=== PATIENT | female | born 1960 | race Caucasian/White ===

== ENCOUNTER 2019-04-28 04:27 | Observation (INO) ==
[2019-04-28] MEDS ORDERED: KETOROLAC 30 MG/ML VIAL IV STA (04:43)
[2019-04-28 04:58] LABS: Basophils # (auto) 0.03 K/uL (0-0.2); Basophils % (auto) 0.3 %; Eosinophils # (auto) 0.22 K/uL (0-0.5); Eosinophils % (auto) 2.4 %; Hemoglobin 13.8 g/dL (12.0-16.0); Immature Granulocytes # (auto) 0.04 K/uL (0.00-0.02); Immature Granulocytes % (auto) 0.4 %; Lymphocytes # (auto) 2.62 K/uL (1.2-3.4); Lymphocytes % (auto) 28.2 %; Mean Corpuscular Hgb Conc 35.4 g/dL (32-36); Mean Corpuscular Volume 92.4 fL (80-100); Mean Platelet Volume 9.1 fL (7.4-10.4); Monocytes % (auto) 8.6 %; Neutrophils # (auto) 5.57 K/uL (1.4-6.5); Neutrophils % (auto) 60.1 %; Platelet Count 279 K/uL (130-400); RDW Coefficient of Variation 12.2 % (11.5-14.5); RDW Standard Deviation 41.3 fL (36.4-46.3); Red Blood Count 4.22 M/uL (4.2-5.4); White Blood Count 9.28 K/uL (4.8-10.8)
[2019-04-28 05:15] LABS: BUN Creatinine Ratio 24.4 (10-20); Calcium 9.1 mg/dl (8.5-10.1); Creatinine Clr Calc Pharmacy 71.7 ml/min; Est GFR (African American) 65.3; Est GFR (Non-African American) 56.3; Potassium 4.3 mmol/L (3.5-5.1)
[2019-04-28] MEDS ORDERED: VANCOMYCIN CONSULT ACTIVE PRN (06:41)
[2019-04-28] MEDS ORDERED: VANCOMYCIN HCL 2,000 MG in SODIUM CHLORIDE 0.9% 500 ML IV ONE (06:41)
--- NOTE | 2019-04-28 06:53 | Emergency Department Note ---
Entered by Karissa Ba acting as a scribe for History of Present Illness General Chief complaint: Infection, Wound Time Seen by Provider: 04/28/19 04:32 Source: patient History of Present Illness Onset (ago): day(s) 6 Location: left (breast) Pain Consistency: + other (worsening) Maximum Pain Intensity: 8 Quality: + other (infection) Relieved By: not by medication (Keflex, Bactrim) Associated symptoms: no fever/chills and no nausea/vomiting The patient is a 58 year old female who presents to the ED with complaints of a worsening infection starting 6 days ago. The patient states that 6 days ago she felt a soreness along her bra line on the left side. She states that she noticed a small sore there and attempted to express liquid out of it. She reports that she got serous fluid from it. She states that the next day she noticed that there was expanding redness and was placed on Bactrim and Keflex. She reports that she has been taking the antibiotics, but as the week has gone on, it has continued to get worse. The patient states that tonight it was extremely painful and when she touched it, it felt like what she thought was an abscess. She reports that she tried to get into her PCP and they sent her here. The patient denies fever, chills, nausea, and vomiting. Home Medications Home Medications Medication Instructions Recorded Confirmed Type calcium carbonate 600 mg calcium 1,200 mg PO DAILY tab 04/26/19 04/28/19 History (1,500 mg) tablet diclofenac sodium 75 mg 75 mg PO ONCE tab 04/26/19 04/28/19 History tablet,delayed release cephalexin 500 mg PO QID 04/28/19 04/28/19 History losartan-hydrochlorothiazide 1 tab PO DAILY 04/28/19 04/28/19 History sulfamethoxazole-trimethoprim 1 tab PO BID 04/28/19 04/28/19 History [Bactrim DS] Allergies Allergy/AdvReac Type Severity Reaction Status Date / Time latex Allergy Unknown hands red, Verified 04/28/19 05:04 rash Past Med/Surg History Medical History Venous stasis ulcer (Acute) Hypertension (Acute) Venous insufficiency (Acute) Surgical History H/O vein stripping (Acute) S/P TKR (total knee replacement) (Acute) S/P tendon repair (Acute) Family History Mother Atrial fibrillation, chronic Social History Preferred Language: [place] Communication Ability: Effective Visual Impairment: No Limitations Hearing Ability: Normal Beliefs That Will Affect Care: None marital status: Current Living Situation: Spouse current occupational status: employed current occupation: RN- [employer] Feels Safe at Home: Yes Smoking Status: Never smoker Hx Alcohol Use: Yes Alcohol type: wine Hx Substance Use: No caffeine: Yes during the past year weight has: remained stable Review of Systems See HPI for pertinent positives & negatives. and A total of 10 systems reviewed and were otherwise negative Physical Exam Vital Signs Vital Signs - 24 hr 04/28/19 04:27 04/28/19 05:32 Temperature 36.9 C Temperature Source Oral Pulse Rate 88 Pulse Rate [Finger] 73 Respiratory Rate 20 16 Respiratory Effort / Characteristics Non-Labored Spontaneous Non-Labored Spontaneous Respiratory Depth Normal Normal Blood Pressure 148/93 Blood Pressure [Right Arm] 151/92 H Blood Pressure Mean 111 Blood Pressure Mean [Right Arm] 111 Pulse Oximetry 99 97 Oxygen Delivery Method Room Air Room Air HEENT: Head - normocephalic and atraumatic Pupils are equal, round, and reactive to light. Extraocular eye muscles are intact, and sclera are anicteric. Nose - moist nasal mucosa without discharge. Mouth - moist buccal mucosa. Oropharynx is nonerythematous and there is no tonsillar exudate or edema noted. Neck: Supple; no JVD, nuchal rigidity, cervical lymphadenopathy, or auscultated bruits. Heart: Regular rate and rhythm. There is a normal S1 and S2 with no murmurs, clicks, or gallops appreciated. Lungs: Clear to auscultation bilaterally with no wheezes, rales, or rhonchi. Abdomen: Soft, completely nontender, nondistended, with good bowel sounds. There are no palpable pulsatile masses or hepatosplenomegaly. There is no guarding, rigidity, or rebound noted. Extremities: No evidence of cyanosis, clubbing, or edema. There are easily palpable peripheral pulses. Skin: A large palpable skin abscess with surrounding cellulitis along the left lateral breast into the mid axillary line. Warm and dry with good turgor. Course 0435: Past medical records reviewed. The patient was evaluated in room A4B. A complete history and physical exam was performed. An IV lock was initiated and labs were drawn as above 0443: Ordered Toradol 30 mg IV. She will go for ultrasound of the left breast/skin abscess. 0539: I reevaluated the patient and she is resting comfortably. 0623: I reevaluated that patient and she is resting comfortably. I discussed her test results and the treatment plan with her. She verbally agrees and understands. . 0626: I discussed the patient's case with Dr. Larkin- General Surgeon. He is going to come see the patient and accepts her for further evaluation. 0641: Ordered Vancomycin HCl 2000 mg IV. Consultations Consultation #1: I discussed the patient's case with Dr. Larkin- General Surgeon. He is going to come see the patient and accepts her for further evaluation. Time: 06:26 Administered Medications Discontinued Medications Ketorolac Tromethamine (Toradol) 30 mg IV NOW STA Stop: 04/28/19 04:44 Last Admin: 04/28/19 04:50 Dose: 30 mg Documented by: [id number] Medical Decision Making Differential Diagnosis Differential diagnoses include skin abscess, cellulitis. Medical Records Attestation: I reviewed the patient's medical records. Home Medications Current Medication List: was personally reviewed by me Laboratory Data Attestation: I reviewed the patient's lab results. Result diagrams: 04/28/19 04:46 04/28/19 04:46 Lab Results 04/28/19 04/28/19 Range/Units 04:46 04:46 WBC 9.28 (4.8-10.8) K/uL RBC 4.22 (4.2-5.4) M/uL Hgb 13.8 (12.0-16.0) g/dL Hct 39.0 (37-47) % MCV 92.4 (80-100) fL MCH 32.7 (25-34) pg MCHC 35.4 (32-36) g/dL RDW Std Deviation 41.3 (36.4-46.3) fL RDW Coeff of Gianna 12.2 (11.5-14.5) % Plt Count 279 (130-400) K/uL MPV 9.1 (7.4-10.4) fL Immature Gran % (Auto) 0.4 % Neut % (Auto) 60.1 % Lymph % (Auto) 28.2 % Cuming % (Auto) 8.6 % Eos % (Auto) 2.4 % Baso % (Auto) 0.3 % Immature Gran # (Auto) 0.04 H (0.00-0.02) K/uL Neut # (Auto) 5.57 (1.4-6.5) K/uL Lymph # (Auto) 2.62 (1.2-3.4) K/uL [place]uming # (Auto) 0.80 H (0.11-0.59) K/uL Eos # (Auto) 0.22 (0-0.5) K/uL Baso # (Auto) 0.03 (0-0.2) K/uL Sodium 136 (136-145) mmol/L Potassium 4.3 (3.5-5.1) mmol/L Chloride 108 H (98-107) mmol/L Carbon Dioxide 23 (21-32) mmol/L Anion Gap 5.0 (3-11) BUN 27 H (7-18) mg/dl Creatinine 1.09 (0.6-1.2) mg/dl Est Cr Clr Drug Dosing 71.7 ml/min Est GFR ( Amer) 65.3 Est GFR (Non-Af Amer) 56.3 BUN/Creatinine Ratio 24.4 H (10-20) Glucose 104 H (70-99) mg/dl Calcium 9.1 (8.5-10.1) mg/dl Imaging Data Radiologist's Impression: Radiology results as stated below per my review and the radiologist's interpretation: US LEFT BREAST: Heterogeneous complex area with possible mobile echoes in let lateral breast (in region of interest) measuring 5.1 x 2.0 x 2.8 cm. Surrounding color flow is pr esent with definite internal color flow. Findings may represent breast abscess/phlegmon, hematoma or other etiology. Recommend clinical correlation and follow-up. Radiologist: Katherine Penny MD Study ready at 05:34 and initial results transmitted at 06:19. Blood Pressure Blood Pressure Findings: Elevated blood pressure Blood Pressure Disposition: elevated BP felt to be situational MDM Narrative The patient is a 58 year old female who presents to the ED with complaints of a worsening infection starting 6 days ago. It appears that the patient is failing outpatient therapy on Bactrim and Keflex for a left breast abscess. Ultrasound confirms a large abscess with overlying skin findings. Her pain was controlled with Toradol. She has no significant leukocytosis or fever. However, she had been on Bactrim and Keflex for 4-5 days. I started the patient on IV vanc omycin. Dr. Larkin will see the patient for further evaluation. Impression & Plan Abscess of breast Discharge Plan Visit Data Chief Complaint: Infection, Wound ED Provider: Tiki Luna Discharge Problem: Abscess of breast Patient Disposition: Being Evaluated by Surgeon Forms Stand Alone Forms: [facility] Prescriptions Prescriptions: No Action diclofenac sodium 75 mg tablet,delayed release (DR/EC) 75 mg PO ONCE RF: 0 calcium carbonate [Calcium 600] 600 mg calcium (1,500 mg) tablet 1,200 mg PO DAILY RF: 0 losartan-hydrochlorothiazide 100-25 mg Tablet 1 tab PO DAILY RF: 0 cephalexin 500 mg Capsule 500 mg PO QID RF: 0 sulfamethoxazole-trimethoprim [Bactrim DS] 800-160 mg Tablet 1 tab PO BID RF: 0 Referrals Referrals: Laura Chisholm MD [Primary Care Provider] - The scribe's documentation has been prepared under my direction and personally reviewed by me in its entirety. I confirm that the note above accurately reflects all work, treatment, procedures, and medical decision making performed by me.
--- NOTE | 2019-04-28 07:23 | Ultrasound Report ---
LEFT BREAST ULTRASOUND CLINICAL HISTORY: eval for size of skin abscess - fluid?? COMPARISON STUDY: No previous studies for comparison. TECHNIQUE: Sonography of the left lateral breast at site of pain and swelling was performed FINDINGS: Note is made of a complex fluid collection of the left lateral breast that measures 5.1 x 2 x 2.8 cm. There are suspected mobile echoes within this collection. There is no internal color flow. There is color flow within the adjacent soft tissues of the left breast. IMPRESSION: Complex 5.1 x 2 x 2.8 cm left lateral breast fluid collection which favors an abscess. P hlegmon or hematoma could appear similar. Electronically signed by: Humberto Brown M.D. 04/28/2019 7:22 AM
--- NOTE | 2019-04-28 09:39 | History & Physical Report ---
Date of Service April 28, 2019 Assessment & Plan (1) Abscess of breast: will admit overnight for IV antibiotics to OR this AM for I & D discussed risks/options. pt agreeable. History of Present Illness Primary Care Provider: Laura Chisholm MD pt with about a 1 year hx of left breast tenderness, worsening the past couple of days.... presented to ER this AM. US confirms left breast complex abcess. Allergies Allergy/AdvReac Type Severity Reaction Status Date / Time latex Allergy Unknown hands red, Verified 04/28/19 05:04 rash Home Medications Home Medications Medication Instructions Recorded Confirmed Type calcium carbonate 600 mg calcium 1,200 mg PO DAILY tab 04/26/19 04/28/19 History (1,500 mg) tablet diclofenac sodium 75 mg 75 mg PO ONCE tab 04/26/19 04/28/19 History tablet,delayed release cephalexin 500 mg PO QID 04/28/19 04/28/19 History losartan-hydrochlorothiazide 1 tab PO DAILY 04/28/19 04/28/19 History sulfamethoxazole-trimethoprim 1 tab PO BID 04/28/19 04/28/19 History [Bactrim DS] Past Med/Surg History Medical History Venous stasis ulcer (Acute) Hypertension (Acute) Venous insufficiency (Acute) Surgical History H/O vein stripping (Acute) S/P TKR (total knee replacement) (Acute) S/P tendon repair (Acute) Family History Mother Atrial fibrillation, chronic Social History Preferred Language: Russian Communication Ability: Effective Visual Impairment: No Limitations Hearing Ability: Normal Latex Dipper Required: No Beliefs That Will Affect Care: None marital status: Current Living Situation: Spouse current occupational 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 nad Heent: Pearla. eomi Heart: RRR Lungs: CTA b/l abd: soft. nt ext: no c/c/e. left LLE dressing for ulcer intact. Left breast: lateral warmth/erythema with central abcess c/w abcess. +ttp. Results & Data Vital Signs (Past 12 Hours) Vital Signs Temp Pulse Pulse Resp BP BP Pulse Ox 04/28/19 08:30 36.5 C 76 18 145/93 H 98 04/28/19 05:32 73 16 151/92 H 97 04/28/19 04:27 36.9 C 88 20 148/93 99
--- NOTE | 2019-04-28 09:53 | Anesthesiology Consultation ---
Date of Service April 28, 2019 Assessment & Plan (1) Encounter for pre-operative examination: Chart Review Chart Review: Acceptable Risk for Surgery and Patient NOT seen in Pre Admission Testing Consults Requested none History Surgery Operation Date: 04/28/19 12:00 Proposed Procedures p Incision and Drainage General(Left) - Otis Larkin DO Height/Weight Height: 5 ft 8 in Weight: 103.5 kg Allergies Allergy/AdvReac Type Severity Reaction Status Date / Time latex Allergy Unknown hands red, Verified 04/28/19 05:04 rash Medications Home Medications Medication Instructions Recorded Confirmed Last Taken calcium carbonate 600 mg calcium 1,200 mg PO DAILY tab 04/26/19 04/28/19 Unknown (1,500 mg) tablet diclofenac sodium 75 mg 75 mg PO ONCE tab 04/26/19 04/28/19 Unknown tablet,delayed release cephalexin 500 mg PO QID 04/28/19 04/28/19 Unknown losartan-hydrochlorothiazide 1 tab PO DAILY 04/28/19 04/28/19 Unknown sulfamethoxazole-trimethoprim 1 tab PO BID 04/28/19 04/28/19 Unknown [Bactrim DS] Active Medications Generic Name Dose Route Start Last Admin Trade Name Freq PRN Reason Stop Dose Admin Lactated Ringer's 1,000 mls @ 125 mls/hr 04/28/19 10:28 04/28/19 10:37 Lr IV 05/28/19 10:27 125 mls/hr .Q8H SHANE Administration Past Medical History Medical History Venous stasis ulcer (Acute) Hypertension (Acute) Venous insufficiency (Acute) Exercise / Class Metabolic Activity II 4-5 Yardwork/Stairs/Walk up hill Past Family History Family History Mother Atrial fibrillation, chronic Past Surgical History Surgical History H/O vein stripping (Acute) S/P TKR (total knee replacement) (Acute) S/P tendon repair (Acute) Past Anesthesia History No Hx of Anesthesia Complications and No Family Hx of Anesthesia Complications History of PONV No Hx of PONV and No Hx of Motion Sickness Social History Smoking Status: Never smoker Do You Dip or Chew Tobacco: No Hx Alcohol Use: Yes Alcohol type: wine Hx Substance Use: No substance use type: does not use Physical Exam Vital Signs Last Vital Signs Temp 37 C 04/28/19 10:28 Pulse 74 04/28/19 10:28 Resp 16 04/28/19 10:28 BP 159/104 H 04/28/19 10:28 Pulse Ox 99 04/28/19 10:28 Testing Laboratory Results 04/28/19 04:46 04/28/19 04:46 Echocardiogram echo nov 2018. EF 55-60%. Normal systolic function.
[2019-04-28] MEDS ORDERED: fentaNYL citrate 100 MCG/2 ML VIAL ONE ×2 (09:55→12:34)
[2019-04-28] MEDS ORDERED: MIDAZOLAM HCL 1 MG/ML 2ML VIAL ONE (09:55)
[2019-04-28] MEDS ORDERED: ONDANSETRON INJ 2 MG/ML 2 ML VIAL IV PRN ×2 (10:28→11:34)
[2019-04-28] MEDS ORDERED: ACETAMINOPHEN 325 MG TAB PO PRN (10:28)
[2019-04-28] MEDS ORDERED: OXYCODONE/ACETAMINOPHEN 5mg/325mg TAB PO PRN ×2 (10:28)
[2019-04-28] MEDS ORDERED: LIDOCAINE HCL 2% 2 ML VIAL/AMP(20MG/ML) INFIL ONE (10:29)
[2019-04-28] MEDS ORDERED: ONDANSETRON INJ 2 MG/ML 2 ML VIAL ONE (10:29)
[2019-04-28] MEDS ORDERED: PROPOFOL IV EMULSION 10 MG/ML 20 ML VIAL IV ONE (10:29)
[2019-04-28] MEDS: LACTATED RINGER'S 1,000 ML IV SCH ×2 (10:37→17:30)
[2019-04-28] MEDS ORDERED: fentaNYL citrate 100 MCG/2 ML VIAL IV PRN (11:34)
[2019-04-28] MEDS ORDERED: HYDROmorphone INJ 1 MG/ML SYRINGE IV PRN (11:34)
[2019-04-28] MEDS ORDERED: ATROPINE SULFATE 0.1 MG/ML 10ML SYR IV PRN (11:34)
[2019-04-28] MEDS ORDERED: ePHEDrine sulfate 50 MG/ML AMP IV PRN (11:34)
[2019-04-28] MEDS ORDERED: BACITRACIN INJ 50,000 UNIT VIAL ONE (11:45)
[2019-04-28] MEDS ORDERED: BUPIVACAINE/EPINEPHRINE 0.5% MPF 1:200,000 30 ML VIAL ONE (11:45)
[2019-04-28] MEDS: AMPICILLIN/SULBACTAM SOD 3,000 MG in 0.9 % SODIUM CHLORIDE 100 ML IV SCH ×2 (12:12→18:00)
--- NOTE | 2019-04-28 12:43 | Operative Report ---
Post Operative Report Pre & Post Diagnosis Operation Date: 04/28/19 12:00 Pre-Op Diagnosis: Left BREAST ABSCESS Post-Op Diagnosis: Left Breast Abscess Procedure Operation Date: 04/28/19 12:00 Actual Procedures p Incision and drainage left breast abscess(Left) - Otis Larkin DO Surgeon Otis Larkin DO Petrology Teacher n/a Estimated Blood Loss 10 Findings Consistent with Post-Op Diagnosis Specimens fluid for c & s Description of Procedure After informed consent was obtained the patient was taken the operating room and placed in supine position. After successful placement of the laryngeal mask airway the left breast was sterilely prepped and draped in usual fashion. I made a horizontal incision directly over the fluctuant area. I immediately encountered a large amount of grayish purulent fluid. A sample was taken and sent for Gram stain culture and sensitivity. It was not foul-smelling. I was able to express the majority of the fluid manually. We then thoroughly irrigated the cavity. I placed 1/2 inch [place] drain and secured it using 2-0 nylon. Sterile dressing was applied as well as a surgical bra. The patient was awakened and transferred recovery in stable condition. I attest to the content of the Intraoperative Record and any orders documented therein. Any exceptions are noted below.
--- NOTE | 2019-04-28 14:29 | Anesthesiology Progress Note ---
Date of Service April 28, 2019 Anesthesia Post Procedure Vital Signs Vital Signs: Temp Pulse Pulse Pulse Resp BP BP 04/28/19 14:18 37.1 C 85 16 139/83 04/28/19 14:00 78 18 118/71 04/28/19 13:45 82 17 129/86 04/28/19 13:30 36.8 C 78 17 134/85 04/28/19 13:20 86 12 140/87 04/28/19 13:10 75 16 130/92 04/28/19 13:00 77 19 138/91 04/28/19 12:53 37.2 C 82 26 H 147/88 H 04/28/19 10:28 37 C 74 16 159/104 H 04/28/19 08:30 36.5 C 76 18 145/93 H 04/28/19 05:32 73 16 151/92 H 04/28/19 04:27 36.9 C 88 20 148/93 Pulse Ox 04/28/19 14:18 98 04/28/19 14:00 96 04/28/19 13:45 99 04/28/19 13:30 96 04/28/19 13:20 97 04/28/19 13:10 100 04/28/19 13:00 100 04/28/19 12:53 100 04/28/19 10:28 99 04/28/19 08:30 98 04/28/19 05:32 97 04/28/19 04:27 99 Pain Intensity Left Breast: Pain Intensity: 2 Transfer of Care Handoff Completed per policy Notes Mental Status: alert / awake / arousable and participated in evaluation Patient Amnestic to Procedure: Yes Nausea / Vomiting: adequately controlled Pain: adequately controlled Airway Patency, RR, SpO2: stable & adequate BP & HR: stable & adequate Hydration State: stable & adequate Anesthetic Complications: no major complications apparent and Pt Satisfied with anesthetic care
[2019-04-28] MEDS ORDERED: DICLOFENAC SODIUM 75 MG TABCR PO ONE (14:45)
[2019-04-28] MEDS: IBUPROFEN 600 MG TAB PO PRN (15:00)
--- NOTE | 2019-04-28 15:41 | Pharmacy Report ---
Pharmacy Abx Initial Consult - Date of Service April 28, 2019 - Pharmacy Dosing Scope Date of Consult: 04/28/19 Consultation requested by: Dr. Larkin Pharmacy is consulted to initiate Vancomycin IV dosing therapy, order appropriate labs and adjust drug dose/frequency. - Subjective The patient is a 58 year old F admitted on 04/28/19 09:35. - Objective Height: 5 ft 8 in Weight: 103.5 kg Vital Signs (Past 12hrs): Vital Signs Temp Pulse Pulse Pulse Resp BP BP 04/28/19 15:14 36.7 C 84 17 147/87 H 04/28/19 14:18 37.1 C 85 16 139/83 04/28/19 14:00 78 18 118/71 04/28/19 13:45 82 17 129/86 04/28/19 13:30 36.8 C 78 17 134/85 04/28/19 13:20 86 12 140/87 04/28/19 13:10 75 16 130/92 04/28/19 13:00 77 19 138/91 04/28/19 12:53 37.2 C 82 26 H 147/88 H 04/28/19 10:28 37 C 74 16 159/104 H 04/28/19 08:30 36.5 C 76 18 145/93 H 04/28/19 05:32 73 16 151/92 H 04/28/19 04:27 36.9 C 88 20 148/93 Pulse Ox 04/28/19 15:14 95 04/28/19 14:18 98 04/28/19 14:00 96 04/28/19 13:45 99 04/28/19 13:30 96 04/28/19 13:20 97 04/28/19 13:10 100 04/28/19 13:00 100 04/28/19 12:53 100 04/28/19 10:28 99 04/28/19 08:30 98 04/28/19 05:32 97 04/28/19 04:27 99 Lab Results (24hrs): Laboratory Tests (24 Hours) 04/28/19 04/28/19 04:46 04:46 WBC 9.28 Neut # (Auto) 5.57 Creatinine 1.09 Est Cr Clr Drug Dosing 71.7 Micro Results: 04/28/19 12:33 Gram Stain - Final Breast,Left Aerobic and Anaerobic Culture - Pending - Risk Factors for Resistance * Antimicrobial use within the last 90 days: Bactrim and keflex 6 days ago - Assessment & Plan Assessment 58 year old F presenting to the ED with complaints of worsening infection that started 6 days ago. Patient noticed a small sore on her left breast that produced serous fluid when she attempted to express liquid. The sore became more reddened, so she was placed on Bactrim and Keflex, but the redness continued to worsen. Patient went to the OR for I/D upon arriving to the ER. Patient also started on Unasyn 3gm IV q6h. Culture of the breast fluid is currently pending. Plan Vancomycin for treatment of left breast abscess Vancomycin IV * Estimated PK Parameters: Vd 0.61 L/kg, Deniz 0.064 hr-1, t1/2 ~11 hr * Loading dose: 2000 mg (19 mg/kg) * Maintenance dose: 1250 mg IV (12 mg/kg) every 12 hours * Goal trough level for SST: 15 to 20 mcg/mL * Trough level ordered for 04/30/19 at 0530 Pharmacy will continue to follow and will adjust dose/frequency as necessary. Thank you.
[2019-04-28] MEDS: VANCOMYCIN HCL 1,250 MG in SODIUM CHLORIDE 0.9% 250 ML IV SCH (18:54)
[2019-04-29] MEDS: AMPICILLIN/SULBACTAM SOD 3,000 MG in 0.9 % SODIUM CHLORIDE 100 ML IV SCH ×2 (00:19→05:02)
[2019-04-29] MEDS: LACTATED RINGER'S 1,000 ML IV SCH (00:19)
[2019-04-29] MEDS: IBUPROFEN 600 MG TAB PO PRN (00:36)
[2019-04-29] MEDS: VANCOMYCIN HCL 1,250 MG in SODIUM CHLORIDE 0.9% 250 ML IV SCH (05:02)
[2019-04-29 06:12] LABS: Basophils # (auto) 0.02 K/uL (0-0.2); Basophils % (auto) 0.3 %; Eosinophils # (auto) 0.17 K/uL (0-0.5); Eosinophils % (auto) 2.4 %; Hematocrit (blood only) 33.6 % (37-47); Hemoglobin 11.1 g/dL (12.0-16.0); Immature Granulocytes # (auto) 0.07 K/uL (0.00-0.02); Lymphocytes # (auto) 2.47 K/uL (1.2-3.4); Lymphocytes % (auto) 34.9 %; Mean Corpuscular Volume 94.6 fL (80-100); Mean Platelet Volume 9.1 fL (7.4-10.4); Monocytes # (auto) 0.39 K/uL (0.11-0.59); Monocytes % (auto) 5.5 %; Neutrophils # (auto) 3.95 K/uL (1.4-6.5); Neutrophils % (auto) 55.9 %; Platelet Count 222 K/uL (130-400); RDW Coefficient of Variation 12.3 % (11.5-14.5); RDW Standard Deviation 42.5 fL (36.4-46.3); Red Blood Count 3.55 M/uL (4.2-5.4); White Blood Count 7.07 K/uL (4.8-10.8)
[2019-04-29 06:45] LABS: Creatinine Clr Calc Pharmacy 95.3 ml/min; Est GFR (African American) 92.1; Est GFR (Non-African American) 79.4
[2019-04-29] MEDS ORDERED: LOSARTAN/HCTZ 50/12.5MG TAB PO SCH (09:00)
[2019-04-29] MEDS ORDERED: CALCIUM 600MG + VIT D 400 IU TAB PO SCH (09:00)
--- NOTE | 2019-04-29 09:14 | Surgery Progress Note ---
Date of Service April 29, 2019 Assessment & Plan (1) Abscess of breast: doing well final cx pending ok for d/c instructions given f/u with me in 3 days d/c home on augmentin Subjective feeling better this am. pain improved Physical Exam Physical Exam: alert. nad wound with much less erythema. Results & Data Vital Signs (Past 12 Hours) Vital Signs Temp Pulse Resp BP Pulse Ox 04/29/19 07:18 36.8 C 63 18 125/83 95 04/29/19 03:02 36.9 C 72 16 121/76 97 04/28/19 23:07 36.9 C 88 16 107/68 94
--- NOTE | 2019-04-29 09:32 | Anesthesiology Progress Note ---
Date of Service April 29, 2019 Anesthesia Post Procedure Vital Signs Vital Signs: Temp Pulse Pulse Resp BP BP Pulse Ox 04/29/19 07:18 36.8 C 63 18 125/83 95 04/29/19 03:02 36.9 C 72 16 121/76 97 04/28/19 23:07 36.9 C 88 16 107/68 94 04/28/19 17:12 37.4 C 88 17 121/75 94 04/28/19 16:22 37.2 C 87 17 130/82 95 04/28/19 15:14 36.7 C 84 17 147/87 H 95 04/28/19 14:18 37.1 C 85 16 139/83 98 04/28/19 14:00 78 18 118/71 96 04/28/19 13:45 82 17 129/86 99 04/28/19 13:30 36.8 C 78 17 134/85 96 04/28/19 13:20 86 12 140/87 97 04/28/19 13:10 75 16 130/92 100 04/28/19 13:00 77 19 138/91 100 04/28/19 12:53 37.2 C 82 26 H 147/88 H 100 04/28/19 10:28 37 C 74 16 159/104 H 99 Pain Intensity Left Breast: Pain Intensity: 2 Bilateral Head: Pain Intensity: 3 Transfer of Care Handoff Completed per policy Notes Mental Status: alert / awake / arousable Patient Amnestic to Procedure: Yes Nausea / Vomiting: adequately controlled Pain: adequately controlled Airway Patency, RR, SpO2: stable & adequate BP & HR: stable & adequate Hydration State: stable & adequate Anesthetic Complications: no major complications apparent
[2019-04-30] MEDS ORDERED: VANCOMYCIN TROUGH ONE (05:30)
--- NOTE | 2019-05-02 12:05 | Discharge Summary ---
Date of Service May 02, 2019 Admission HPI Per Admitting Provider pt with about a 1 year hx of left breast tenderness, worsening the past couple of days.... presented to ER this AM. US confirms left breast complex abcess. Principal Diagnosis Left breast abscess Discharge Exam Chest (Breasts) Additional Comments: left breast incision, erythema improving Discharge Data Allergies Allergy/AdvReac Type Severity Reaction Status Date / Time latex Allergy Unknown hands red, Verified 05/01/19 13:06 rash Consultations 04/28/19 06:42 ED Decision to Admit Stat Procedures Performed Operation Date: 04/28/19 12:00 Actual Procedures p Incision and drainage left breast abscess(Left) - Otis Larkin DO Ordered Studies 04/28/19 04:43 US breast LT limited Urgent Hospital Course (1) Abscess of breast: 58 y/o female presented to the ED with left breast tenderness and drainage. U/S confirmed abscess and she was taken to the OR for incision and drainage. She was observed overnight and continued on IV antibiotics. Erythema was improving in the morning. She was stable for discharge home with follow-up at the wound care center. Total Time Total Time Spent Total Time Spent (In Minutes): 15 Discharge Plan Discharge Items Patient Disposition: Home - Self-Care Reason For Visit: BREAST ABSCESS Discharge Diagnosis: left breast abcess Discharge Goals: Decrease discomfort and Therapeutic intervention Activity: Resume your previous activity Bathing: No limitations Non-emergency contact: Surgeon Call non-emergency contact if: you have any medication questions, your pain is worsening, your temperature is above 101, your wound has increased redness, your wound has increased drainage and your wound pain has increased Follow-up/Referrals: Otis Larkin DO [Surgeon] - Laura Chisholm MD [Primary Care Provider] - Diet: Regular Addtl Provider Instructions: wound care as discussed call [phone] with any questions/concerns Prescriptions: New amoxicillin-pot clavulanate [Augmentin] 875-125 mg tablet 1 tab PO Q12H Qty: 20 RF: 0 Continued diclofenac sodium 75 mg tablet,delayed release (DR/EC) 75 mg PO ONCE RF: 0 calcium carbonate [Calcium 600] 600 mg calcium (1,500 mg) tablet 1,200 mg PO DAILY RF: 0 losartan-hydrochlorothiazide 100-25 mg Tablet 1 tab PO DAILY RF: 0 Discontinued cephalexin 500 mg Capsule 500 mg PO QID RF: 0 sulfamethoxazole-trimethoprim [Bactrim DS] 800-160 mg Tablet 1 tab PO BID RF: 0 Stand-Alone Forms: [facility], Opioid Pain Management Alley/Other Patient Handouts: Surgery Prevent DVT After, Dressing Change Dc Discharge Orders: Discharge Order (Routine); Ordered 04/29/19 Ordered By: Otis Larkin Admission Data Admit Date/Time: 04/28/19 09:35 Attending Provider: tOis Larkin Admit Provider: Otis Larkin Primary Care Provider: Laura Chisholm Other Providers: Otis Larkin Service: Surgical Services Other Interventions: Discharge Summary Assessment (RN) Last Done: 04/29/19 10:20 DC Date/Time DO NOT enter until pt leaves facility: 04/29/19 11:17
== END 2019-04-29 11:17 | disposition home or self-care (01) ==
LOC: 3N 04:27 → ED 04:27 → 3N 10:07